=== PATIENT | male | born 1985 | race Caucasian/White ===

== ENCOUNTER 2020-11-25 10:18 | Emergency (ER) | payer OTHER, BC, SELFPAY ==
--- NOTE | ~2020-11-25 | XR_ITS ---
EXAMINATION: XR FINGER, RIGHT CLINICAL INFORMATION: Tip of middle finger amputation COMPARISON: None TECHNIQUE: Three views of the right third. FINDINGS: There is a fracture of the distal tuft of the third finger. There is evidence of trauma to the overlying soft tissues suggestive of a compound fracture. No radiopaque soft tissue foreign body is seen. There is an overlying dressing. XR/XR finger RT min 2V IMPRESSION: Compound fracture of the distal tuft of the third finger.
[2020-11-25 10:20] VITALS: BP 141/99; BP 145/68; PULSE 98; RESP 20; TEMP 36.9; O2SAT 100; BMI 30.8
[2020-11-25] MEDS: Lidocaine HCl 2 % MPF 5 ML VIAL SUBCUT ×2 (10:59→12:43)
[2020-11-25] MEDS: oxyCODONE HCl Immed Release 5 MG TABLET 10 MG PO (10:59)
--- NOTE | 2020-11-25 11:08 | ED_ITS ---
HPI - Wound/Laceration General Chief Complaint: Wound/Laceration Stated Complaint: amputation of last segment of middle finger Time Seen by Provider: 11/25/20 10:22 Source: patient Mode of arrival: EMS Limitations: no limitations History of Present Illness HPI narrative: 35-year-old healthy male who presents the ED with right middle finger tip amputation. 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 He noticed he his bleeding and was missing the tip. Brought in by EMS for evaluation. No medications given prior to arrival. Patient does not think he is up-to-date on tetanus. Complaining of 03/26 pain. Denies any other injuries or trauma. Related Data Previous Rx's Medication Instructions Recorded cephalexin 500 mg PO QID #40 cap 11/25/20 oxycodone 10 mg PO Q8H PRN #9 tab 11/25/20 Allergies Allergy/AdvReac Type Severity Reaction Status Date / Time No Known Allergies Allergy Unverified 03/03/20 19:02 [No Known Allergies*] Review of Systems Review of Systems: Constitutional : No Weight loss, No Fever, No Chills, No Night Sweats, No Fatigue, No Malaise ENT/Mouth : No Hearing loss, No Ear Pain, No Nasal Congestion, No Sinus Pain, No Hoarseness, No sore throat, No Rhinorrhea, No Swallowing Difficulty Eyes: No Eye Pain, No Swelling, No Redness, No Foreign Body, No Discharge, No Vision Changes Cardiovascular : No Chest Pain, No SOB, No Dyspnea on Exertion, No Orthopnea, No Edema, No Palpitations Respiratory : No Cough, No Sputum, No Wheezing, No Smoke Exposure, No Dyspnea Gastrointestinal : No Nausea, No Vomiting, No Diarrhea, No Constipation, No abdominal Pain, No Hematochezia, No Melena Genitourinary : no irregular bleeding, No Dysuria, No Urinary Frequency, No Hematuria, No Urinary Incontinence, No Urgency, No Flank Pain, No Urinary Flow Changes, No Hesitancy Musculoskeletal : + joint pain, No Myalgias Skin : No Skin Lesions, No rash + finger round Neuro : No Weakness, No Numbness, No Paresthesias, No Loss of Consciousness, No Dizziness, No Headache Psych : No Anxiety/Panic, No Depression, No SI/HI/AH/VH, No Social Issues, Heme/Lymph: No Bruising, No Bleeding,No Lymphadenopathy Endocrine : No Polyuria, No Polydipsia, No Temperature Intolerance [facility] Past Medical History Attestation statement: The following information was validated with the patient. Source: old records reviewed and nursing notes reviewed Physical Exam Vital Signs: Vital Signs: Last Vital Signs Temp 98.4 F 11/25/20 10:20 Pulse 98 11/25/20 10:20 Resp 20 11/25/20 10:20 BP 141/99 H 11/25/20 10:20 Pulse Ox 100 11/25/20 10:20 Body Mass Index 30.8 vital signs have been reviewed as normal and appeared to be correct. Blood pressure normal. Heart rate normal. Respiration rate normal. Temperature normal. Oxygen saturation normal. Appearance: Alert. Oriented X3. Mild acute distress. Head: Normal external exam. Normocephalic. Atraumatic. No Panchal signs noted. No raccoon eyes noted Eyes: Conjunctiva and sclera normal. ENT: EAC normal. Moist mucous membranes. No drooling noted. No muffled voice noted. Neck: Normal inspection. Neck supple. FROM. No meningeal signs. CVS: Pulses normal throughout. Respiratory: No respiratory distress. Painless inspiration. No accessory muscle usage noted Abdomen: No visible injury noted. Back: Full range of motion noted. Skin: Skin warm and dry. Normal skin color. Normal skin turgor. Extremities: No lower extremity edema. Extremities exhibit normal range of motion. Patient with distal tip amputation to right middle DIP. Nail missing. Tip brought in, in a bag on ice. Mild active bleeding that stops with pressure. sensation intact to remaining tissue. Good ROM to PIP and right hand. Good distal pulse. Unable to perform capillary refill to affected finger. Neuro: Oriented X 3. No motor deficit. No sensory deficit. Course Course Course Narrative: Patient's x-ray with evidence of distal come home fracture of the tuft. IV dose of Ancef given for open fracture patient will go home on Keflex for 10 days. Unfortunately there is no spirit tissue to close wound. Per ortho recommendations will wrap in Xeroform gauze and put a dry dressing patient will follow-up in the office on Saturday for likely surgical revision on Saturday. Will prescribe pain medications for home. Patient has had several episodes of vasovagal presyncope here will continue to monitor until his symptoms have improved. EKG and POC obtained within limits Procedures Laceration Laceration 1: Site: hand (right middle finger tip amputation) Side (If applicable): right Description: irregular (complete loss of tissue to distal finger tip. ) Pre-repair: wound explored, irrigated extensively and extensive debr idement MDM - Wound/Laceration MDM Narrative Medical decision making narrative: Patient's vital signs are stable and he is afebrile. Patient presenting to the ED for right middle finger tip amputation at work. There is small amount of bony exposure. No skin flap left. Nail has been removed and injury involved nail bed. Will obtain x-ray to assess for evidence of fracture as this is of highly likelyhood. Will irrigate wound copiously. Digital block performed for comfort will also give oral dose of oxyc odone. Patient otherwise neurovascularly intact. No other signs of injury or trauma. Will continue to monitor. Will also consult Orthopedics for additional recommendations in for ultimate evaluation/repair. Lab Data Labs: Lab Results 11/25/20 Range/Units 12:12 POC Glucose 124 H (60-115) mg/dL Discharge Plan Discharge Clinical Impression: Fingertip amputation Qualifiers: Encounter type: initial encounter Qualified Code(s): S68.119A - Complete traumatic metacarpophalangeal amputation of unspecified finger, initial encounter Patient Disposition: Home, Self-Care Instructions: Finger Amputation (ED) Additional Instructions: You were seen in the emergency department today due to injury to your right middle finger. Unfortunately the tip of the right middle finger was completely amputated and could not be saved. There was no extra tissue to close the wound so it was dressed with antibiotic gauze and wrapped do not remove this dressing until you see the weatherization specialist on Saturday. They will call to schedule your appointment. Continue to take Motrin and Tylenol for pain control. You will also be prescribed a short course of oxycodone for severe pain. You will be prescribed an antibiotic to prevent infection. Please take this as directed. Return to the ED if he develops signs of infection such as fever or drainage from the dressing. Prescriptions: New oxycodone 10 mg tablet 10 mg PO Q8H PRN (Reason: pain) Qty: 9 RF: 0 cephalexin 500 mg capsule 500 mg PO QID Qty: 40 RF: 0 Referrals: Sherine Marroquin MD [Physician] - 3 days (You need to be seen Saturday-if you did not hear please call to confirm appointment) Stand Alone Forms: Work/School Release Interventions: ED Discharge Assessment Last Done: 11/25/20 14:41 Discharge Date/Time: 11/25/20 14:43 Print Language: Greek
--- NOTE | 2020-11-25 12:05 | ECG_ITS ---
Test Reason : NEAR SYNCOPE Blood Pressure : / mmHG Vent. Rate : 073 BPM Atrial Rate : 073 BPM P-R Int : 142 ms QRS Dur : 088 ms QT Int : 412 ms P-R-T Axes : 064 017 033 degrees QTc Int : 453 ms Normal sinus rhythm with sinus arrhythmia Normal ECG No previous ECGs available Referred By: Leanne Rosado Electronically Signed By:DAMARIS GILMORE MD
[2020-11-25 12:15] LABS: Glucose, Whole Blood 124 mg/dL (60-115)
--- NOTE | 2020-11-25 12:19 | PC.NURSE ---
PT HAD VASAL VAGAL EPISODE POST DIGITAL [id number] AND 75, HEAD LOWERED EPISODE RESOLVED, PT MEDICATED WITH OXYCODONE FOR PAIN, THEN C/O CONTINUED PAIN, RN WENT TO MEDICATE WITH MORPHINE AND IV ANTIBIOTICS WHEN RETURNED TO ROOM PT C/O FEELING HOT AND NOT GOOD, USMAN HAWKINS IN TO ASSESS, MOUNTER CLARINETS FAY UPDATED, PT TRANSFERED TO MAIN ED FOR FURTHER EVAL AND TX, REPORT TO VISH HART, MORPHINE WASTED IN ED PYXIS. 1136 BP 136/89, P 74
[2020-11-25] MEDS: Diphth,Pertus(ACell),Tet Adult 0.5 ML SYRINGE IM (12:36)
[2020-11-25] MEDS: ondansetron HCL 4 MG/2 ML VIAL IVPUSH (12:41)
== END 2020-11-25 14:43 | disposition home or self-care (01) ==
PROVIDERS: Emergency Provider Emergency Medicine
DX: S68.112A Complete traumatic metacarpophalangeal amputation of right middle finger, initial encounter (principal); W31.82XA Contact with other commercial machinery, initial encounter; R55 Syncope and collapse; Y93.89 Activity, other specified; Y92.59 Other trade areas as the place of occurrence of the external cause; Y99.0 Civilian activity done for income or pay
CPT/HCPCS: 64450; 73140; 82947; 90471; 90715; 93005; 96365; 96372; 96375; 99284; 99285; J0690; J2405

== ENCOUNTER → 2020-11-28 12:52 | Outpatient (BNVA) | payer OTHER, BC, SELFPAY | PROVIDERS: Visit Provider Orthopaedic Surgery | DX: S68.122A Partial traumatic metacarpophalangeal amputation of right middle finger, initial encounter (principal) | CPT/HCPCS: 99202 ==

== ENCOUNTER 2020-12-01 09:46 | Day surgery (SDC) | payer OTHER, SELFPAY ==
--- NOTE | 2020-11-30 08:50 | HO.ANESPROP2 ---
Documented by User: Aby Mcpherson 11/30/20 08:52 HPI - Anesthesia Eval Consult details Narrative: 35yo M for Right Middle Finger revision Amputation,excision of nail matrix PMFSH Active Problems Active Problems: All Active Problems (Updated 11/28/20 @ 14:12 by Sherine Marroquin MD) Partial traumatic MCP amputation of right middle finger (Acute) Past Medical History Medical History No significant medical problems Surgical History Surgical History History of mandibular surgery Social History Social History Patient Tobacco Use Status: Current someday Tobacco user Tobacco use type: Cigarette Use of substances other than those prescribed or required for medical reasons: No Are you DNR?: No Advance Directives: No Advance Directives Information Provided: Yes Current occupational status: employed 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 Rate : 073 BPM Atrial Rate : 073 BPM P-R Int : 142 ms QRS Dur : 088 ms QT Int : 412 ms P-R-T Axes : 064 017 033 degrees QTc Int : 453 ms Normal sinus rhythm with sinus arrhythmia Normal ECG No previous ECGs available Assessment and Plan Assessment Anesthesia Assessment: Chart Reviewed Documented by User: Justino Tang MD 12/01/20 10:16 PMFSH Past Medical History Medical History No significant medical problems Surgical History Surgical History History of mandibular surgery Social History Social History Patient Tobacco Use Status: Current someday Tobacco user Tobacco use type: Cigarette Use of substances other than those prescribed or required for medical reasons: No Are you DNR?: No Advance Directives: No Advance Directives Information Provided: Yes Current occupational status: employed 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 Meds Allergies Allergy/AdvReac Type Severity Reaction Status Date / Time No Known Allergies Allergy Verified 12/01/20 09:58 [No Known Allergies*] Exam Airway Mallampati Class: I TM Dist: >3cm Neck ROM: Full Loose/Missing/Broken Teeth: No Heart: RRR Assessment and Plan Assessment Anesthesia Assessment: Anesthesia Plan Discussed and Chart Reviewed Final Anesthetic Review NPO: Yes ASA Class: I Final Preanesthetic Review: No Changes in Pt Med Stat, Meds/Allgs Chart Reviewed, Consent Obtained/Reviewed and Anes Risks/Benef Reviewed Patient Risk: Low Procedure Risk: Low Anesthetic Plan Anesthetic Plan: GA Disposition: Standard PACU
[2020-12-01 10:09] VITALS: BP 133/90; PULSE 83; RESP 16; TEMP 36.3; O2SAT 97
[2020-12-01 10:10] VITALS: BMI 31.7
[2020-12-01] MEDS: Lactated Ringers 1,000 ML 100 ML IVCONT (10:23)
[2020-12-01 14:08] VITALS: BP 133/98; PULSE 91; RESP 16; TEMP 36.3; O2SAT 99
--- NOTE | 2020-12-01 14:10 | MHC.SHP ---
Pre-Procedural Eval Section B Chief Complaint: traumatic trans-phalangeal amp Allergies: Allergies Allergy/AdvReac Type Severity Reaction Status Date / Time No Known Allergies Allergy Verified 12/01/20 09:58 [No Known Allergies*] Plan I have reviewed the history and physical and performed a pertinent physical examination on my patient. No changes have occurred unless specified.
--- NOTE | 2020-12-01 14:10 | W.PM.OPN ---
Operative Note Operative Note Date of Service: 12/01/20 Narrative: Operative Note Narrative: Preop diagnosis: 1. Right middle finger distal phalanx level amputation with nailbed involvement Postop diagnosis: Same Procedure: 1. Right middle finger distal phalanx level revision amputation 2. Right middle finger excision of nail bed germinal matrix Surgeon: Sherine Marroquin MD Anesthesia: Mac plus regional block Findings: Traumatic amputation Implants: None Tourniquet time: 33 minutes EBL: 5.0 ml Specimen: None Drains: None Complications: None Disposition: Brought to the recovery room in stable condition Plan: Follow-up in 1 week for wound check Sutures to be removed at 3 week follow-up Indications: The patient is a 35 year old man with a traumatic amputation through the distal phalanx level of his right middle finger involving the nail bed . The risks and benefits of operative treatment, including but not limited to risk of damage to blood vessels, nerves, tendons, infection, recurrence, persistent pain or numbness, incomplete resolution of preoperative symptoms, or need for further surgery were discussed with the patient and they wished to proceed with surgery. Procedure: Once consent was obtained patient was brought back to the operating suite and placed in the operating table in a supine position. Perioperative antibiotics and anesthesia was administered by the anesthesia team. A tourniquet was applied to the proximal aspect of the right upper extremity and the limb was prepped and draped in a standard surgical fashion. The limb was elevated exsanguinated with Esmarch bandage and the tourniquet inflated to 250 mm of mercury for a total tourniquet time of 33 minutes. Only the very proximal aspect of the nail plate and the proximal most aspect of the eponychial fold were remaining. [place] elevator was used to elevate the remaining nail plate from the nail bed and to remove it. I then made 2 small oblique incisions in the eponychial fold to allow me to draw back the eponychial fold and evaluate the germinal matrix of the nail bed. I then used a 15 blade and a rongeur order to then excise the germinal matrix to prevent any further growth of the fingernail. I then used a bone biter to remove approximately 3 mm from the distal aspect of the remaining distal phalanx. A rongeur was then used to make round edges in the bone. I used tenotomy scissors in a 15. Blade to remove any devitalized tissue and to also freshened up the skin edges. He has a fair amount of skin loss but with good intact soft tissue on the volar aspect of the finger. The wound was copiously irrigated with normal saline. I then brought the volar soft tissue over the distal and of the bone reapproximating it to the dorsal remaining skin. This was done using some 4-0 Prolene suture material. Once satisfied with our revision amputation the tourniquet was deflated and hemostasis obtained with a brief period of local pressure. A digital block was performed using some 0.5% plain Marcaine and a sterile dressing was applied. The patient tolerated the procedure well with no complications. The digit was well vascularized at the conclusion of the case.
[2020-12-01 14:13] VITALS: BP 143/99; PULSE 90; RESP 17; O2SAT 96
[2020-12-01 14:18] VITALS: BP 137/97; PULSE 84; RESP 16; O2SAT 97
[2020-12-01 14:23] VITALS: BP 147/108; PULSE 81; RESP 17; O2SAT 98
[2020-12-01 14:38] VITALS: BP 132/97; PULSE 69; RESP 17; TEMP 36.3; O2SAT 98
== END 2020-12-01 15:28 | disposition home or self-care (01) ==
PROVIDERS: Visit Provider Orthopaedic Surgery
PROC: (CPT 26951; principal; 2020-12-01 11:50)
DX: S68.622A Partial traumatic transphalangeal amputation of right middle finger, initial encounter (principal); L60.8 Other nail disorders; X58.XXXA Exposure to other specified factors, initial encounter; Y93.9 Activity, unspecified; Y92.69 Other specified industrial and construction area as the place of occurrence of the external cause; Y99.0 Civilian activity done for income or pay
CPT/HCPCS: 26951; 11750; J0690; J2250; J2405; J3010

== ENCOUNTER → 2020-12-09 12:25 | Outpatient (BNVA) | payer OTHER, SELFPAY | PROVIDERS: Visit Provider Physician Assistant | DX: Z47.81 Encounter for orthopedic aftercare following surgical amputation (principal); S68.122D Partial traumatic metacarpophalangeal amputation of right middle finger, subsequent encounter | CPT/HCPCS: 99212 ==

== ENCOUNTER 2020-12-26 09:35 | Outpatient (REF) | payer OTHER, SELFPAY | END 2020-12-26 09:36 | disposition home or self-care (01) | LOC: HO.HOSX 09:35 | PROVIDERS: Visit Provider Orthopaedic Surgery | DX: Z13.89 Encounter for screening for other disorder (principal) ==

== ENCOUNTER → 2020-12-28 13:16 | Outpatient (BNVA) | payer OTHER, SELFPAY | PROVIDERS: Visit Provider Orthopaedic Surgery | DX: S68.122A Partial traumatic metacarpophalangeal amputation of right middle finger, initial encounter (principal) | CPT/HCPCS: 99212 ==

== ENCOUNTER → 2021-01-06 13:10 | Outpatient (BNVA) | payer OTHER, SELFPAY | PROVIDERS: Visit Provider Physician Assistant | DX: Z47.81 Encounter for orthopedic aftercare following surgical amputation (principal); S68.122D Partial traumatic metacarpophalangeal amputation of right middle finger, subsequent encounter | CPT/HCPCS: 99212 ==

== ENCOUNTER 2021-01-18 08:24 | Outpatient (REF) | payer OTHER, SELFPAY ==
--- NOTE | ~2021-01-18 | XR_ITS ---
EXAMINATION: XR HAND, RIGHT CLINICAL INFORMATION: Injury third finger distal phalanx. Follow-up. COMPARISON: Radiographs right third finger 11/25/2020. TECHNIQUE: AP and oblique views right hand and a lateral view of the right third finger are obtained for 3 views. FINDINGS: There are posttraumatic changes at the distal 3rd finger with foreshortening distal soft tissues and absent distal phalanx tuft and neck of the distal phalanx. The remaining bone appears intact with no destructive process, erosive changes, periostitis, or gas tracking in the soft tissues. There are 2 punctate ossific densities in the distal soft tissues. No dislocation or similar subluxation. The remainder of the bony structures are unremarkable. XR/XR hand RT min 3V IMPRESSION: Posttraumatic changes distal third finger soft tissues and distal phalanx. No destructive process, periostitis, or gas tracking in soft tissues.
== END 2021-01-18 08:25 | disposition home or self-care (01) ==
LOC: HO.HOSX 08:24
PROVIDERS: Visit Provider Orthopaedic Surgery
DX: S68.622D Partial traumatic transphalangeal amputation of right middle finger, subsequent encounter (principal)
CPT/HCPCS: 73130; 99212

== ENCOUNTER → 2021-06-27 15:27 | Outpatient (BNVA) | payer OTHER, SELFPAY | PROVIDERS: Visit Provider Orthopaedic Surgery | DX: Z09 Encounter for follow-up examination after completed treatment for conditions other than malignant neoplasm (principal); S68.622D Partial traumatic transphalangeal amputation of right middle finger, subsequent encounter | CPT/HCPCS: 99212 ==